=== PATIENT | female | born 1990 | race Caucasian/White ===

== ENCOUNTER → 2022-11-30 13:51 | Outpatient (CLI) | payer OTHER, SELFPAY ==
--- NOTE | ~2022-11-30 | US_ITS ---
EXAMINATION: US transvaginal DATE: 11/30/2022 14:39 INDICATION: Abnormal uterine bleeding Comparison:No prior studies for comparison. TECHNIQUE: Multiple endovaginal sonographic images of the pelvis performed. FINDINGS: The uterus measures 7 x 3.5 x 5.8 cm. The endometrial complex measures 10 mm. The right ovary measures 1.4 x 1.3 x 1.8 cm and the left ovary measures 1.7 x 2 x 1.8 cm. There are small follicles in each ovary. Normal doppler signal in both ovaries. There is no free fluid in the pelvis. There are no abnormal masses seen on either side. IMPRESSION: 1. Unremarkable pelvic ultrasound. Reviewed, dictated and finalized at location B. S AND MARKETING VICE PRESIDENT
== END ==
PROVIDERS: PCP Obstetrics & Gynecology Gynecology; Visit Provider Obstetrics & Gynecology Gynecology
DX: N93.8 Other specified abnormal uterine and vaginal bleeding (principal); N85.2 Hypertrophy of uterus; O34.22 Maternal care for cesarean scar defect (isthmocele)
CPT/HCPCS: 76830

== ENCOUNTER 2024-11-16 03:04 | Day surgery (SDC) | payer OTHER, SELFPAY ==
[2024-11-04 13:11] VITALS: BMI 36.1
--- NOTE | 2024-11-04 13:20 | SUR.PREOP ---
Report to the Outpatient Waiting Room, entrance under the green pavilion located off [facility], at time 8:00 a.m. on date 11/16/2024. Planned Procedure Time: 10:00a.m..? Time changes happen often and if your time is changed the preop area will call you the afternoon before. - You and your visitor will be asked to self-screen and do not enter if you have any COVID symptoms. Please call surgeon if you need to reschedule. - A mask is optional within the hospital at this time. Patients may have clear liquids (water, carbonated beverages, clear teas, apple juice) until 3 hours prior to surgery with a maximum of 20 ounces. - No food from midnight until time of surgery and no smoking. This includes no chewing gum, candy or mints. - Infants may have breast milk until 4 hours before surgery, infant formula 6 hours prior to surgery. - Children will be allowed to drink immediately following surgery.? If applicable, please bring a bottle or sippy cup to assist with drinking. Juice, water, soda, and popsicles are readily available.? For infants on formula, please bring formula the day of surgery.? Pacifiers are allowed. Take only the following medications with a SIP of water on the morning of surgery: N/A DO NOT STOP ANY OF YOUR OTHER PRESCRIPTION MEDICATIONS PRIOR TO SURGERY EXCEPT THE FOLLOWING Medications to discontinue per physician Vitamins and supplements Date to take last dose 11/13/2024 Please no make-up, nail icelandic, hairspray, perfume, deodorant, or body powder the day of surgery.? No jewelry (including any body piercings) or valuables the day of surgery, leave them at home.? Please take a shower or bath the night before, or the morning of, surgery with an antibacterial soap.? Wear comfortable, loose fitting clothing.? Children are encouraged to wear pajamas. - Jewelry must be removed prior to entering the operating room.? Rings and piercings that are not removed may be cut off. - The hospital will not accept responsibility for valuables.? - Please leave all valuables, including medications, at home the day of surgery. If you are going home after surgery, a licensed wood pile driver operator must drive you home.? - NO public transportation without another adult if you receive anesthesia. - We recommend that an adult stay with you for 24 hours following discharge. - We also recommend that you do not drive, make important decision, drink alcoholic beverages, or take any drugs that were not prescribed by your health care provider for at least 24 hours after your discharge time. For Pediatric surgeries, we recommend two adults accompany the child home. Hold all vitamins and supplements for 3 days per anesthesiologist. Follow any additional instructions given to you from your surgeon. Telephone instructions given to Azucena Gomez and asked if any additional questions and then verbalized understanding. Patient advised to call surgeon office or pre surgery nurse liaison [phone] if any additional questions.
--- OUTSIDE RECORDS SUMMARY | 2024-11-16 03:12 | XMS_ITS | Clinical Summary ---
Author Organization [facility] Address [address] [place] [address] Care Team Providers Care Transmission Technician Name Role Phone Pcp, Navi Crump Primary Care Provider Unav ailable Source Comments [facility],non-owned Affiliates and Associated Physician Practices is amultiple site organization consisting of ambulatory clinics and hospital sitesin [place], [place], [place] and [place]. This disclosure is being madepursuant to the Care Everywhere program and may not contain all information available regarding this patient. Last updated 18.[facility] Allergies Active Allergy Reactions Criticality Noted Date Comments Amoxicillin Itching 07/19/2014 Medications * Be aware that medications may not be up to date on this document. Alwaysverify current medications with the patient. Medication Sig Dispensed Refills Start Date End Date Status fluticasone propionate (FLONASE) 50 MCG/ACT nasal spray [place] 2 sprays into each nostril once daily 1 bottles 11/14/2017 Active Loratadine (CLARITIN PO) Active cephalexin (KEFLEX) 500 MG capsule Take 2 capsules by mouth 2 times daily 40 capsule 07/12/2019 Active Active Problems Problem Noted Date Diagnosed Date Thyroid nodule 07/19/2014 Comments Yes Family History Medical History Relation Name Comments Asthma Maternal Grandfather Thyroid Disease Maternal Grandfather Stroke Maternal Grandmother Autoimmune Disease Neg Hx Bipolar Disorder Neg Hx Cancer - Breast Neg Hx Cancer - Colon Neg Hx Cancer - Other Neg Hx Cancer - Ovarian Neg Hx Cancer - Pancreatic Neg Hx Cancer - Prostate Neg Hx Depression Neg Hx Eczema Neg Hx Hypertension Neg Hx Migraine Neg Hx Osteoporosis Neg Hx Seizures Neg Hx Sudd. <30 Neg Hx Ulcerative Colitis Neg Hx Relation Name Status Comments Father Alive Maternal Grandfather Maternal Grandmother Mother Alive Social History Tobacco Use Types Packs/Day Years Used Date Smoking Tobacco: Never Smokeless Tobacco: Never Tobacco Cessation:Counseling Given: No Alcohol Use Standard Drinks/Week Comments Yes 0 (1 standard drink = 0.6 oz pur e alcohol) Comments Yes Sex and Gender Information Value Date Recorded Sex Assigned at Not on file Gender Identity Not on file Sexual Orientation Not on file Last Filed Vital Signs Vital Sign Reading Time Taken Comments Blood Pressure 126/58 04/27/2018 3:49 PM CDT Pulse 98 04/27/2018 3:49 PM CDT Temperature 36.8 C (98.2 F) 04/27/2018 3:49 PM CDT Respiratory Rate 20 04/27/2018 3:49 PM CDT Oxygen Saturation 98% 11/14/2017 3:36 PM ANTISQUEAK WORKER Inhaled Oxygen Concentration - - Weight 86.2 kg (190 lb) 04/27/2018 3:49 PM CDT Height 154.9 cm (5' 1 ) 04/27/2018 3:49 PM CDT Body Mass Index 35.9 04/27/2018 3:49 PM CDT Plan of Treatment Health Maintenance Due Date Last Done Comments HIV SCREENING 2003 HEPATITIS C SCREENING 09/13/2006 DTAP/TDAP/TD VACCINES (1 - Tdap) 2007 HEPATITIS B VACCINE (1 of 3 - 19+ 3-dose series) 2007 PAP SMEAR 07/19/2016 07/19/2013 (Previously completed) COVID-19 VACCINE (2023-2 5 season) 2024 INFLUENZA VACCINE (#1) 2024 DEPRESSION SCREENING 10/07/2024 ZOSTER VACCINE (1 of 2) 2038 Respiratory Syncytial Virus (RSV) Vaccine Pt: or over 60 yrs (1 - 1-dose 75+ series) 2063 HIB VACCINE Aged Out No longer eligi ble based on patient's age to complete this topic HPV VACCINE Aged Out No longer eligi ble based on patient's age to complete this topic MENINGOCOCCAL (Group B) VACCINE Aged Out No longer eligible b ased on patient's age to complete this topic MENINGOCOCCAL VACCINE Aged Out No yousif michael eligible based on patient's age to complete this topic PNEUMOCOCCAL VACCINE Aged Out No long er eligible based on patient's age to complete this topic Care Teams Transmission Technician Relationship Specialty Start Date End Date PcpNavi PCP - General 04/11/23
--- OUTSIDE RECORDS SUMMARY | 2024-11-16 03:12 | XMS_ITS | Encounter Summary ---
Author Organization [facility] Address [address] [place] [id number] Care Team Providers Care Resilient Tile Installer Name Role Phone Jennifer Herzog Primary Care Provider [phone] Encounter Details Date Type Department Care Team (Late st Contact Info) Description 08/15/2023 Viridis Learning Message Enc [facility] Family [facility] Sports Medicine - [address] [place] [address] [facility] Provider Covid Vaccines Social History Tobacco Use Types Packs/Day Years Used Date Smoking Tobacco: Never Passive Smoke Exposure: Never Smokeless Tobacco: Never Alcohol Use Standard Drinks/Week Comments Yes 0 (1 standard drink = 0.6 oz pur e alcohol) socially PHQ-2 Answer Date Recorded Patient Health Questionnaire-2 Score 2 08/14/2023 Comments No Sex and Gender Information Value Date Recorded Sex Assigned at Not on file Legal Sex Female 3:31 PM CDT Gender Identity Not on file Sexual Orientation Not on file documented as of this encounter Plan of Treatment Not on file documented as of this encounter Visit Diagnoses Not on filedocumented in this encounter Additional Health Concerns Assessment Noted Time PHQ-9 Depression Total Score: 6 08/14/20 23 1:53 PM HAND SIZER documented as of this encounter Care Teams Resilient Tile Installer Relationship Specialty Start Date End Date Jennifer Herzog APNP [address] [place] [address] PCP - General NURSE PRACTITIONER 08/13/23 documented as of this encounter
--- OUTSIDE RECORDS SUMMARY | 2024-11-16 03:12 | XMS_ITS | Data Portability ---
Author Organization [employer] , [facility] Address [address] [place] [address] Assessment No assessment recorded. Plan of Treatment Reminders Order Date Submit Date Provider Last Modified By Organization Details Last Modified Time Details Appointments None recorded. Lab beta-HCG, quantitativ e, serum or plasma 2021 [facility], [address] [place] [address], [address], 2 14:48:53 Referral None recorded. Procedures None recorded. Surgeries None recorded. Imaging US, pelvis 2021 [facility] Not available 21:12:49 US, transvagina l 2021 022 [facility] Not available 2 17:39:02 Medication Orders Keflex 500 mg capsule 2021 022 [place] [address] 1 [facility][id number], [address] [place], [place], [id number], 3 16:48:53 estradiol 2 mg tablet 2021 023 [facility] #[id number], [address], [place], [id number], 3 10:47:41 Diflucan 150 mg tablet 2021 022 [place] [address] 1 [facility] #[id number], [address] [place], [place], [id number], 3 16:48:57 Blisovi Fe 10/26 (28) 1 mg-20 mcg (21)/75 mg (7) tablet 2022 023 [id number], [address], [place], [place], [id number], 3 10:52:30 Patient TargetsNo targets recorded. Patient Instructions Encounter Date Encounter Id Patient Instructions Last Modified By Organization Details Last Modified Time 07/31/2022 [id number] after : exercises Not available 08/06/2022 06:39:54 depression after childbirth: care instructions Not available 08/06/2022 06:39:54 Reason for Referral None Reported. Results Created Date Observation Date Name Description Value Unit Range Abnormal Flag Note LastModifiedBy Organization Detail LastModifiedTime 09/05/20 22 09/06/2022 HCG, TOTAL , QUANT HCG, total, quant 0.0 mIU/m L < 5 Refer ence Range s are for femal es aged 18 years - Adult Nonpr egnan t or preme nopau mukesh <5 Postm enopa usal <10 Value s from diffe rent assay metho ds may vary. The use of this assay to monit or or to diagn ose patie nts with cance r or any other condi tion unrel ated to pregn radha has not been valid ated by the [facility] actur er of this assay . Not Available [facility] [address] [place], [address], 09/06/2022 14:48:53 09/08/20 22 09/05/2022 US, pelvi s No observ ation record ed. [email or web address] [address], [place], [address], 10/17/2022 16:52:30 09/27/20 22 09/25/2022 US, trans vagin al No observ ation record ed. [email or web address] [address], [place], [address], 10/17/2022 16:47:09 Result Notes None recorded. Problems Name Problem SNOMED Code Status Onset Date Resolution Date Notes Provider Name and Address Organization Details Recorded Time Sampling of vagina for Papanico laou smear Completed 201904/12/2021 Encounte r for gynecolo gical examinat ion (general ) (routine ) without abnormal findings ; Progress : Stable Added By: Shannan Hernandez Add to Current Problems : NO ProblemS tatus: Resolve Not Available [facility] 2 20:21:11 Transien t hyperten darius of pregnanc y - not delivere d [id number] Completed 201709/23/2018 Hyperten darius in Pregnanc y; Location : None Progress : Stable Added By: Nohemy Vicente Add to Current Problems : YES ProblemS tatus: Resolve Not Available [facility] 2 20:21:18 Vaginola bial hernia Completed 202004/12/2021 Other specifie d noninfla mmatory disorder s of vagina; Progress : Stable Added By: Charito Robertson Add to Current Problems : NO ProblemS tatus: Resolve Not Available [facility] 2 20:20:52 Normal pregnanc y in multigra alek [id number] 4106 Completed 201711/26/2018 Encounte r for supervis ion of other normal pregnanc y, second trimeste r; Progress : Stable Added By: Lexy Puckett Add to Current Problems : NO ProblemS tatus: Resolve; Start Date : 04/18/20 18 Encou nter for supervis ion of other normal pregnanc y, third trimeste r; Progress : Stable Added By: Treva Shoemaker Add to Current Problems : NO ProblemS tatus: Resolve Not Available [facility] 2 20:21:05 Gestatio n period, 30 weeks 04884908 Completed 201711/07/2018 30 weeks gestatio n of pregnanc y; Progress : Stable Added By: Bj Gold Add to Current Problems : NO ProblemS tatus: Resolve Not Available [facility] 2 20:21:11 Lochia finding Completed 201806/10/2020 Encounte r for routine postpart um follow-u p; Progress : Stable Added By: Lexy Puckett Add to Current Problems : NO ProblemS tatus: Resolve Not Available [facility] 2 20:21:32 Gestatio n period, 36 weeks 60697632 Completed 201811/26/2018 36 weeks gestatio n of pregnanc y; Progress : Stable Added By: Treva Shoemaker Add to Current Problems : NO ProblemS tatus: Resolve Not Available [facility] 2 20:21:05 Maternal hyperten darius 097799737 Completed 201811/26/2018 Gestatio nal [pregnan cy-induc ed] hyperten darius without signific ant proteinu shahzad, third trimeste r; Progress : Stable Added By: Jennifer Sanches Add to Current Problems : NO ProblemS tatus: Resolve Not Available [facility] 2 20:21:18 Uses combined oral contrace ption 832578827 Completed 201904/12/2021 Encounte r for surveill ance of contrace ptive pills; Progress : Stable Added By: Charito Swenson Add to Current Problems : NO ProblemS tatus: Resolve Not Available [facility] 2 20:21:33 Gestatio n period, 37 weeks 64714072 Completed 201811/26/2018 37 weeks gestatio n of pregnanc y; Progress : Stable Added By: Treva Shoemaker Add to Current Problems : NO ProblemS tatus: Resolve Not Available [facility] 2 20:21:18 Maternal hyperten darius 235738133 Completed 201709/23/2018 Gestatio nal [pregnan cy-induc ed] hyperten darius without signific ant proteinu shahzad, second trimeste r; Progress : Stable Added By: Nohemy Vicente Add to Current Problems : NO ProblemS tatus: Resolve Not Available [facility] 2 20:21:25 Gestatio n period, 34 weeks 41556605 Completed 201811/07/2018 34 weeks gestatio n of pregnanc y; Progress : Stable Added By: Lexy Puckett Add to Current Problems : NO ProblemS tatus: Resolve Not Available [facility] 2 20:21:38 Gestatio n period, 24 weeks 071677233 Completed 201711/07/2018 24 weeks gestatio n of pregnanc y; Progress : Stable Added By: Lexy Puckett Add to Current Problems : NO ProblemS tatus: Resolve Not Available [facility] 2 20:21:12 Cyst of vulva 77057874 Completed 202012/11/2021 Vulvar cyst; Severity : Moderate Progress : Stable Added By: Ghazal Sahu Add to Current Problems : YES ProblemS tatus: Current Charito Swenson MD [address] [place], [address] , [facility] 2 06:22:21 Gestatio n period, 28 weeks 98865535 Completed 201711/07/2018 28 weeks gestatio n of pregnanc y; Progress : Stable Added By: Bj Gold Add to Current Problems : NO ProblemS tatus: Resolve Not Available [facility] 2 20:21:[address] Concept Completed 201811/26/2018 Supervis ion of other high risk pregnanc ies, marixa trimeste r; Progress : Stable Added By: Jennifer Sanches Add to Current Problems : NO ProblemS tatus: Resolve Not Available [facility] 2 20:20:51 Procedur e on genitour inary system Completed 201801/06/2019 Encounte r for surgical aftercar e followin g surgery on the genitour inary system; Progress : Stable Added By: Treva Shoemaker Add to Current Problems : NO ProblemS tatus: Resolve Not Available [facility] 2 20:21:37 Postoper ative care Completed 201801/06/2019 Encounte r for surgical aftercar e followin g surgery on the genitour inary system; Progress : Stable Added By: Treva Shoemaker Add to Current Problems : NO ProblemS tatus: Resolve Not Available [facility] 2 20:21:38 Gestatio n period, 38 weeks 64442539 Completed 201811/26/2018 38 weeks gestatio n of pregnanc y; Progress : Stable Added By: Treva Shoemaker Add to Current Problems : NO ProblemS tatus: Resolve Not Available [facility] 2 20:21:25 Rubella screenin g status 688525061 Completed 201711/07/2018 Antenata l screenin g; unspecif ied; Location : None Progress : Stable Added By: Lexy Puckett Add to Current Problems : YES ProblemS tatus: Current Encounte r for antenata l screenin g, unspecif ied; Progress : Stable Added By: Lexy Puckett Add to Current Problems : NO ProblemS tatus: Resolve Not Available [facility] 2 20:20:52 Elevated blood-pr essure reading without diagnosi s of hyperten darius 960911223 Completed 201711/07/2018 Elevated blood-pr essure reading, without diagnosi s of hyperten darius; Progress : Stable Added By: Monserrat Joshi Add to Current Problems : NO ProblemS tatus: Resolve Not Available [facility] 2 20:21:12 Gestatio n period, 33 weeks 79079629 Completed 201811/07/2018 33 weeks gestatio n of pregnanc y; Progress : Stable Added By: Jennifer Sanches Add to Current Problems : NO ProblemS tatus: Resolve Not Available [facility] 2 20:21:19 Obesity 322356782 Completed 2021 BMI 34 Ashleigh Villalister null, [place] [facility] 2 16:46:39 Past pregnanc y history of section 561721862 Completed 2021 x 2, Desires repeat with steriliz ation Ashleigh Rainey null[place] [facility] 2 16:46:39 Past pregnanc y history of section 031787579 Active 2021 x 2, Desires repeat with steriliz ation Ashleigh Rainey null, [place] [facility] 2 16:46:39 Obesity 733494305 Active 2021 BMI 34 Ashleigh Rainey null, [facility] 2 16:46:39 Antenata l screenin g Completed 201811/26/2018 Encounte r for antenata l screenin g of mother; Progress : Stable Added By: Treva Shoemaker Add to Current Problems : NO ProblemS tatus: Resolve; Start Date : 07/18/20 18 Encou nter for antenata l screenin g for Streptoc occus B; Progress : Stable Added By: Treva Shoemaker Add to Current Problems : NO ProblemS tatus: Resolve Encounte r for other specifie d antenata l screenin g; Progress : Stable Added By: Treva Shoemaker Add to Current Problems : NO ProblemS tatus: Resolve; Start Date : 07/18/20 18 Not Available [facility] 2 20:21:05 Sampling of vagina for Papanico laou smear Completed 201904/12/2021 Encounte r for cervical smear to confirm findings of recent normal smear followin g initial abnormal smear; Progress : Stable Added By: Rosalia Medrano Add to Current Problems : NO ProblemS tatus: Resolve Not Available [facility] 2 20:21:24 Depressi on screenin g Completed 201806/10/2020 Encounte r for screenin g for maternal depressi on; Progress : Stable Added By: Lexy Puckett Add to Current Problems : NO ProblemS tatus: Resolve Not Available [facility] 2 20:21:32 RhD negative 042857558 Completed Ashleigh Villalister null, [facility] 2 16:46:39 Problem Notes None recorded. Procedures Surgical History Date Name Laterality Status Provider Name and Address Organization Details Recorded Time Suture/Staple removal completed Charito Swenson MD [address] [place] [address], [phone], [employer] [place] 06/25/2022 21:45:02 022 fallopian tube excision completed Charito Swenson MD [address] [place] [address], [phone], [facility] [employer] [facility] 08/06/2022 06:38:46 020 Date of Last [facility] 11/03/2021 15:16:42 cholecystectomy completed [facility] [employer] [facility] 11/03/2021 15:19:47 section completed Charito Swenson MD [address] [place], [address], [facility] [employer] [facility] 08/06/2022 06:38:17 Imaging Results Imaging Date Name Status LastModified by Organization Details LastModified Time 09/05/2022 US, pelvis completed [email or web address], [place], [address], 10/17/2022 16:52:30 09/25/2022 US, transvaginal completed [email or web address] [address], [place], [address], 10/17/2022 16:47:09 Procedure Notes None recorded. Medical Equipment None Reported. Allergies Allergen ID Allergen Name Allergen Category Reaction Reaction Severity Criticality Documentation Date Start Date Code Code System Note Provider Name and Address Organization Details Recorded Time 585913 amoxicill in medicatio n Not available Not available Not available 07/28/20212017 723 RxNorm Sever ity: Moder ate; Not Available Not Available Not Available 935323 cat dander environme nt Not available Not available Not available 11/06/2021 06153 UNK Not Available Not Available Not Available 586652 mold extract environme nt Not available Not available Not available 11/06/2021 45710 8 RxNorm Not Available Not Available Not Available Medications Name Sig Start Date Stop Date Status Note LastModified by Organization Details LastModified Time doxycycli ne hyclate 100 mg capsule TAKE 1 CAPSULE BY MOUTH TWICE DAILY FOR 5 DAYS 09/25 completed Not Available Not Available Not Available aspirin 325 mg tablet 1 tab daily 12/12 completed Aspirin (ASA) 81mg Chewable Tablet RxNorm: 101852 Allow Substitu tion: True Refill Denied: No Refill DateOccu rred: 10/24/19 19 Not Available Not Available Not Available fluconazo le 150 mg tablet TAKE 1 TABLET BY MOUTH EVERY DAY DIRECTED 11/12 completed Not Available Not Available Not Available metronida zole 500 mg tablet TAKE 1 TABLET BY MOUTH TWICE DAILY FOR 7 DAYS. DO NOT DRINK ALCOHOL WHILE TAKING THIS MEDICATI ON 11/06 completed Not Available Not Available Not Available sulfameth oxazole 800 mg-trimet hoprim 160 mg tablet take 1 tablet by oral route bid x 7d 11/06 completed sulfamet hoxazole -trimeth oprim 800-160 mg oral tablet RxNorm: 610817 Allow Substitu tion: True Refill Denied: No Edited by: barbara fairbanks(Ghazal Miguel ) on 04/12/20 21 Stopped by: barbara fairbanks(Ghazal Miguel ) on Not Available Not Available Not Available Zantac 150 mg tablet 1 p.o. bid 10/24 completed Zantac 150mg Tablet RxNorm: 612669 Allow Substitu tion: True Refill Denied: No Not Available Not Available Not Available Vitamin tablet 01/06 completed Multivit foster RxNorm: 0 Allow Substitu tion: True Refill Denied: No Refill Note: No cancel reason selected Refill DateOccu rred: 10/24/19 19 Not Available Not Available Not Available estradiol 1 mg tablet TAKE 1 TABLET BY MOUTH TWICE DAILY FOR 5 DAYS 09/25 completed Not Available Not Available Not Available Zoloft 50 mg tablet 1 p.o. qd 11/10 completed Zoloft 50mg Tablet RxNorm: 929831 Allow Substitu tion: True Refill Denied: No Refill Note: Auto Aged Refill DateOccu rred: 06/13/20 18 Not Available Not Available Not Available phenazopy ridine 100 mg tablet take 1 tablet (100 mg) by oral route 3 times per day after meals 11/06 completed Not Available Not Available Not Available cephalexi n 500 mg capsule TAKE 1 CAPSULE BY MOUTH EVERY 6 HOURS FOR 5 DAYS 11/12 completed Not Available Not Available Not Available buspirone 10 mg tablet 1 po BID 12/12 completed Buspiron e HCl 10mg Tablet RxNorm: 942359 Allow Substitu tion: True Refill Denied: No Not Available Not Available Not Available aspirin 81 mg chewable tablet 1 tab daily 12/12 completed Aspirin (ASA) 81mg Chewable Tablet RxNorm: 689633 Allow Substitu tion: True Refill Denied: No Refill DateOccu rred: 10/24/19 19 Not Available Not Available Not Available estradiol 2 mg tablet Take 1 tablet every day by oral route. 11/15 completed Not Available Not Available Not Available ibuprofen 600 mg tablet 08/20 completed Not Available Not Available Not Available oxycodone 5 mg tablet 07/31 completed Not Available Not Available Not Available Tika 0.35 mg tablet Take 1 tablet(s ) by mouth daily as directed . 11/06 completed Tika 0.35 mg oral tablet RxNorm: 400253 Allow Substitu tion: True Refill Denied: No Edited by: Concetta Laird ) on 05/20/20 20 Stopped by: Concetta Laird ) on Not Available Not Available Not Available nitrofura ntoin monohydra te/macroc rystals 100 mg capsule TAKE 1 CAPSULE BY MOUTH TWICE DAILY FOR 7 DAYS 11/06 completed Not Available Not Available Not Available Zantac 1 p.o. bid 12/12 completed Zantac 150mg Tablet RxNorm: 867488 Allow Substitu tion: True Refill Denied: No Refill DateOccu rred: 10/24/19 19 Not Available Not Available Not Available active Not Available Not Avai lable Not Available Prenate Mini Take 1 capsule( s) by mouth daily 08/01 completed Prenate Mini Softgel capsule Allow Substitu tion: True Refill Denied: No Refill DateOccu rred: 04/18/20 18 Not Available Not Available Not Available Blisovi Fe 10/26 (28) 1 mg-20 mcg (21)/75 mg (7) tablet TAKE 1 TABLET BY MOUTH DAILY DIRECTED active Not Available Not Available No t Available Vitals Date Recorded Body height Body mass index (BMI) Body weight Systolic blood pressure Diastolic blood pressure Provider Name and Address Organization Details Last Updated DateTime 07/31/2022 165.1 cm 34.8 kg/m2 50228.81 g 122 mm[Hg] 70 mm[Hg] Karen Hilario [place] [facility] 2 10:21:45 Date Recorded Body height Body mass index (BMI) Body weight Body temperature Systolic blood pressure Diastolic blood pressure Provider Name and Address Organization Details Last Updated DateTime 2 165.1 cm 34.9 kg/m2 46679.9 6 g 98.2 [degF] 118 mm[Hg] 72 mm[Hg] Ashleigh Rainey [facility] 2 16:51:49 Date Recorded Body height Body mass index (BMI) Body weight Body temperature Systolic blood pressure Diastolic blood pressure Provider Name and Address Organization Details Last Updated DateTime 2 165.1 cm 34.9 kg/m2 66733.4 g 98.1 [degF] 112 mm[Hg] 70 mm[Hg] Talib Taylor [facility] 2 10:41:15 Date Recorded Body height Body mass index (BMI) Body weight Body temperature Systolic blood pressure Diastolic blood pressure Provider Name and Address Organization Details Last Updated DateTime 2 165.1 cm 33.6 kg/m2 72800.6 6 g 97.1 [degF] 119 mm[Hg] 74 mm[Hg] Latanya Anton [facility] 2 13:11:44 Date Recorded Body height Body mass index (BMI) Body weight Systolic blood pressure Diastolic blood pressure Provider Name and Address Organization Details Last Updated DateTime 11/15/2022 154.94 cm 38 kg/m2 94478.07 g 118 mm[Hg] 76 mm[Hg] Loydajordan Hilario [facility] 3 10:29:39 Social History Question Answer Notes LastModified by Organizat ion Details LastModified Time Tobacco Smoking Status Never Smoker Ashleigh lopez [facility] 11/06/2021 10:34:19 What Is Your Level Of Alcohol Consumption? Occasional Information not available 11/06/2021 Are You Blind Or Do You Have Difficulty Seeing? No Information not available 02/12/2022 Are You Deaf Or Do You Have Serious Difficulty Hearing? No Information not available 02/12/2022 What Type Of Diet Are You Following? REGULAR Information not available 11/06/2021 Do You Or Have You Ever Used E-cigarettes Or Vape? Never Used Electronic Cigarettes Information not available 11/06/2021 How Many Children Do You Have? 3 Information not available 11/15/2022 What Is Your Relationship Status? Information not available 11/03/2021 Are You Sexually Active? Yes Information not available 11/03/2021 Do You Use Any Illicit Or Recreational Drugs? No Information not available 11/06/2021 Do You Or Have You Ever Used Any Other Forms Of Tobacco Or Nicotine? No Information not available 02/12/2022 Sex: Unknown Functional Status Question Answer Note LastModified by Organization D etails LastModified Time What is your exercise level? Moderate Information not available 11/06/2021 Mental Status None recorded. Family History Relationship Description Onset Age of this Age Resolved Age Notes LastModified by Organization Details LastModified Time Maternal Grandfather Hypertensive disorder [email or web address] Not available 10/08 15:20:29 Maternal Grandmother Hypertensive disorder [email or web address] Not available 10/08 15:20:29 Mother Hypertensive disorder [email or web address] Not available 10/08 15:20:29 Paternal Grandfather Type 2 diabetes mellitus [email or web address] 2 Not available 11/06/2021 10:28:39 Paternal Grandmother Type 2 diabetes mellitus [email or web address] 2 Not available 11/06/2021 10:28:39 Medical History Condition Response High Blood Pressure N Cytomegalovirus N Hyperthyroidism N MRSA N Blood Transfusion N Depression N Incontinence N Anxiety Disorder N Autoimmune disease N Arthritis N Polycystic Ovarian Syndrome N Hematuria N Varicosities N Stroke N Seasonal allergies N Crohn's Disease N Alzheimer's/Dementia N COPD/Emphysema N History of Abnormal Pap N Fibromyalgia N Kidney Infection N Kidney Disease N Gallbladder disease N Von Willebrand disease N Eating Disorder N Diabetes Mellitus (non-insulin dependent ) N Ovarian Problems N Frequent Urinary Tract infections N Osteopenia N GERD (reflux) N Diabetes (insulin dependent) N Heart Attack N Asthma N Endometrial Cancer N Hepatitis N Pulmonary Embolism N RPR N Chicken Pox N Other Cancer N Colon Cancer N Herpes (HSV) N Breast Cancer N Lung Cancer N Hypothyroidism N Panic Attacks N Neurological Disorder N Deep Vein Thrombosis N Shingles N Tuberculosis/Positive PPD N Cervical Cancer N Chlamydia N Endometriosis N HPV/Genital Warts N IBS (Irritable Bowel Syndrome) N High Cholesterol N Liver Disease N Ulcer N HIV N Sickle Cell Disease/Trait N ADD/ADHD N Anemia N Multiple Sclerosis N Gonorrhea N Headaches/migraines N Ovarian Cancer N Seizures/Epilepsy N Fibroids N Lupus N Rubella N Blood Clotting Disorder N Bipolar Disorder N Diabetes Mellitus (during ) N Ulcerative Colitis N Heart Disease N Osteoporosis N Gynecological History Statement/Question Response Flow Moderate Date of last HPV 06/16/2020 Date of LMP 11/15/2022 Most Recent Bone Density HPV Vaccine N Date of Last Pap Smear 06/16/2020 Most Recent Mammogram Current Control Method Tubal Ligat ion Age at Menarche 10 Obstetrics History GPAL:G 3 P 3 0 0 3 Type Value Multiple Births 0 Full Term 3 Induced 0 Spontaneous 0 Premature 0 Living 3 Ectopics 0 Total 3 Past Encounters Encounter ID Performer Location Encounter Start Date Encounter Closed Date Diagnosis/Indication Diagnosis SNOMED-CT Code Diagnosis ICD10 Code Diagnosis Note [id number] SUAD Estevez [facility] [address] [place] [address] 11/06/2021 10:28:30 11/06/2021 15:26:26 Routine care 982353514 Z34.81 1. IUP FWB reassuring by initial US done in office today. Aneuploidy screening: Anatomy Scan:2. NOB labs ordered on 11/06/21. Last Pap: 06/2020 NILM, HPV neg. GCCT collected and sent.3. H/O C/S X 2 - Primary for maternal fever, FTP, Intoleranc e, 2nd repeat. Planning repeat LTCS with Ayala Swenson MD.4. Obesity - BMI 33.6. HgA1C added to NOB labs. Pt educated on dietary recommenda tions.5. H/O Thyroid Nodule - no meds. Pt reports TFT's not drawn in several years. TFT's added to NOB labs.6. Delivery Plans: Repeat LTCS with BTL with Ayala Swenson MD at [facility].7. PP Contracept ion Plans: BTL with delivery. Follow up in 4 weeks. [id number] Charito Swenson MD [facility] [address] [place] [address] 12/12/2021 10:09:38 12/12/2021 11:40:31 Routine care 360530632 Z34.81 Gestation period, 12 weeks 85871678 Z3A.12 [id number] [facility] [address] [place] [address] 01/09/2022 10:05:35 01/09/2022 13:01:27 Routine care 430281358 Z34.02 Gestation period, 16 weeks 05389979 Z3A.16 screening 2437 22916 Z36.9 [id number] [facility] [address] [place] [address] 02/12/2022 10:25:45 02/12/2022 13:22:58 Routine care 987190215 Z34.82 Gestation period, 20 weeks 83202571 Z3A.20 screening 2437 69591 Z36.3 [id number] [facility] [address] [place] [address] 03/06/2022 11:27:48 03/28/2022 13:53:28 [id number] [facility] [address] [place] [address] 04/02/2022 10:24:30 04/02/2022 12:09:05 Routine care 624916529 Z34.03 Z34.83 O09.513 O09.523 Depression screening 171 341531 Z13.31 Gestation period, 28 weeks [id number] Z3A.28 [id number] [facility] [address] [place] [address] 04/13/2022 15:45:25 04/13/2022 16:59:19 Routine care [id number] Z34.83 Gestation period, 29 weeks [id number] Z3A.29 [id number] Charito Swenson MD [facility] [address] [place] [address] 05/01/2022 10:52:08 05/02/2022 11:13:42 Routine care [id number] Z34.83 Gestation period, 32 weeks [id number] Z3A.32 [id number] Charito Swenson MD [facility] [address] [place] [address] 05/22/2022 10:04:29 06/05/2022 14:41:16 Routine care [id number] Z34.83 Low back p ain in [id number] 106 O26.899 Gestation period, 35 weeks [id number] Z3A.35 [id number] Charito Swenson MD [place] [address] [place] [address] 06/05/2022 09:58:44 06/05/2022 11:37:06 Routine care [id number] Z34.83 Gestation period, 37 weeks [id number] Z3A.37 screening 2437 35820 Z36.85 [id number] Charito Swenson MD [facility] [address] [place] [address] 06/12/2022 10:09:49 06/12/2022 10:50:23 Routine care [id number] Z34.83 Gestation period, 38 weeks [id number] Z3A.38 [id number] Chariot Swenson MD [facility] [address] [facility] [place] [address] 06/26/2022 10:11:00 06/26/2022 11:50:10 Postoperative visit [id number] Z09 Reviewed Surgical findings. Patient instructed to maintain strict pelvic rest and no heavy lifting greater than 20 lbs. She was instructed to return for a visit in 4 weeks. All of her questions were answered. [id number] Charito Swenson MD [facility] [address] 07/31/2022 09:52:34 07/31/2022 10:44:58 state 86473607 Z39.2 PNV daily Maternal p ostpartum depression screening [id number] 42025 Z13.32 [id number] Manjula Hicks, CN[address] [address] 08/20/2022 16:02:44 08/21/2022 11:06:32 Abnormal uterine bleeding [id number] 9100 N93.9 Precaution s reviewed. PA for tvus. [id number] HUPMHREY WING DO [address] [address] 09/05/2022 10:03:54 09/05/2022 12:25:48 Disorder of menstruation 731325716 N92.6 31 yo 11 weeks from RTLCS w/ BTL on 06/18/22 with ongoing bleeding. US today: thin endometria l lining with debris surroundin g scar.-Plan for hcg levels, if positive will likely move forward with hysterosco py D&C. If negative, will monitor symptoms as they have improved. May repeat US in 2 weeks if still spotting. Hakeem wang thirty minutes spent with patient in consultati on (>50% face-to-fa ce). Patient labs and notes were reviewed. Patient questions were answered. Additional patient care was coordinate d. [id number] Stanislaw Toney MD [address] [address] 09/25/2022 12:35:12 09/26/2022 09:28:39 Disorder of menstruation 561157302 N92.6 discussed atrophic bleeding and we can have her try estradiol 1 -2 mg bid x 5 days prn for bleeding more than 5 days and she may take 1 po qd last 7 days of her control pills as well and spencer third option is to take 1mg daily while on the control pill and we could even try placing her on estrostep Mastitis a ssociated with [id number] O91.22 keflex qid x 5 days Candidiasis 23613100 B37 .9 [id number] SUAD Chacon [facility] [address] [place] [address] 11/15/2022 10:16:57 11/15/2022 10:55:47 Abnormal uterine bleeding [id number] 9100 N93.9 Patient has done well on OCP in the past. Will switch to OCP and discontinu e rx. If ineffectiv e will call office Initial pr escription of oral contraception [id number] Z30.011 Pt educated on risks Vs benefits of use, and reviewed ACHES symptoms. Importance of daily administra tion within the same 30 minute time frame reinforced to pt, and on use of condoms or abstinence if dosing schedule is interrupte d. Refills sent. Plan to F/U PRN or at next [facility]. Health Concerns Section Related Observation LastModified by Organization Detai ls LastModified Time None Recorded Concern Status LastModified by Organization Details LastModified Time None Recorded Advance Directives Directive None Recorded Payers Encounter Date Sequence Insurance Name Policy Number Policy Concepcion Covered Member ID Concepcion Member ID Guarantor Name 07/31/2022 1 [facility] [employer] [id number] Azucena E Jason [id number] Azucena E Jason 08/20/2022 1 [facility] [employer] [id number] Azucena E Jason [id number] Azucena E Jason 09/05/2022 1 [facility] [id number] Azucena E Jason [id number] Azucena E Jason 09/25/2022 1 [facility] [employer] [id number] Azucena E Jason [id number] Azucena E Jason 11/15/2022 1 [employer] - CHOICE (POS II) [id number] Azucena E Jason [id number] Azucena E Jason Notes Date Note Type Note Provider Name and Address Organization Details Recorded Time 07/31/2022 text/html VisitReported bypatient.Onset/Timing :date of delivery: (06/18/2022); [facility] Quality:repeat C/S; infant female weight 8#8oz Context:complications of : none; complications of labor: ; complications: none; feeding choice: breast; good support from partner/family; resumed menstrual bleeding yes Associated Symptoms:no abnormal bleeding; no vaginal discharge; no pelvic pain; laceration well healed; no constipation; no fecal incontinence; no dysuria; no urinary incontinence; no fever; no problems; no mastitis; normal mood; pumping Contraception Plan:permanent sterilization Azucena here for 6 week post visit Charito Swenson MD [facility] [place], [address], [facility] [employer] [facility] 08/06/2022 06:39:58 08/20/2022 text/html Abnormal BleedingReported bypatient.Quality:spot ting Associated Symptoms:no dysmenorrhea; no pelvic pain; no abdominal pain; no dyspareunia; no fatigue; no dizziness; no anemia/iron supplements; no shortness of breath; no CP/palpitations; no bloating; no change in bowel function; no urinary symptoms; no PMS; no vaginal discharge; no vaginal itching/irritationNote s:Patient is now 9 weeks . States she spotted until 5 weeks, it stopped for a week, then started again at 6 weeks. She had no bleeding during week 7 and started spotting around week 8. ;It stopped yesterday. Denies pain, odor, or heaviness of flow. Pt had repeat and tubes removed on 06-18-2022. States she is still having bleeding. Manjula Hicks CNM [facility] [place], [address], [facility] [employer] [facility] 08/26/2022 15:01:53 09/05/2022 text/html Abnormal BleedingReported bypatient.Onset/Timing :Patient not for sure if she has had period or not Duration:7-10 days/month Quality:spotting Severity:changing pad/tampon every 1-2 hours Associated Symptoms:pelvic pain;fatigue;anemia/ir on supplements Pt is here for follow up from continued bleeding following on 06/18/22. Since her visit on 08/20 her bleeding has been: one day of moderate flow on 08/24 and then spottingUS today: thin endometrial lining with debris surrounding scar. HUMPHREY WING DO [address] [facility], [place], [address], [facility] 09/05/2022 11:39:12 09/25/2022 text/html Abnormal BleedingReported bypatient.Quality:pass ing clots;heavy Severity:interferes with daily activitiesNotes:had baby on 06-18-22 and then pp bleeding stopped 22 july and spotted jul 28 and became heavier and stopped and started 08-12 and spotted off and on and heavier 09-07-22 and estradiol and antbxs on and stopped bleeding for 10 days (stopped the estrogen after a week) Pt states she has been bleeding since she delivered baby, but it's been excessive with clots. Pt also states that she has a dry itchy patch on her right nipple. Pt is breast feeding. Pt doesn't have any other questions or concerns. Stanislaw Toney MD [facility] [facility], [place], [address], [facility] 10/27/2022 15:30:29 11/15/2022 text/html Azucena is here t alexandra for irregular bleeding off and on since her 06/18/2022.At times it's been excessive with clots. She was see by Dr. Toney on 09/2022 and was rx'd Estradiol 1mg. This was not effective for helping her bleeding. She was increased to 2mg on 11/09/22. This helped her sx, but have not resolved them. She continues to have heavy, irregular cycles. She had a pelvic u/s on 09/25/22. This was found to be normal. Her hx is notable for a BTL. Her last pap was 06/16/20 Neg/HPV. She has been on an OCP in the past and this worked well for herShe is currently lactating. Her milk supply has decreased slightly since starting on Estradiol SUAD Chacon [address] [facility], [place], [address], [facility] 11/15/2022 13:41:21 OBGyn Episode Ob Episode Information Episode Created Date Number of Fetuses Patient Bloodtype Patient rh Status Prepregnancy Weight lbs Domestic Partner Domestic Partner Phone Father Name Ecg Technician Status 07/30/20 22 1 CLOSED Fetus Data First Name Last Name Admitted to NICU Weight (g) Sex Living Outcome Pediatric Complications Fetus ID Race Codes Race Delivery Type 3883.65 4704 F Full Term [id number] Repeat Rakan Calculation Initial Rakan Date Initial Exam Date Initial Exam Provider Initial Ultrasound Date Last Menstrual Period Date Ultra Sound Weeks Gestation 0 Eighteen To Twenty Week Rakan Update Ultra Sound Date Fundal Height At Umbil Quickening Date Ultra Sound Latest Weeks Gestation Final Rakan Confirmed By Final Rakan Confirmed Date Final Rakan Date Ultra Sound Latest Days Gestation 0 0 Menstrual History Last Menstrual Date Menses Monthly On Bcp Conception Prior Menses Frequency Hcg Plus Date Menarche Onset Age Delivery Information Delivery Date Delivery Type Labor Anesthesia Weeks Gestation Incision Type Labor Labor Length Hrs Delivered By Post Complications Tubal Sterilization Discharge Date Comments 2 Regional- ina Discharge Information Feeding Method Contraceptive Method Maternal HG B and HCT Levels Ob Episode Information Episode Created Date Number of Fetuses Patient Bloodtype Patient rh Status Prepregnancy Weight lbs Domestic Partner Domestic Partner Phone Father Name Ecg Technician Status 11/05/19 22 1 CLOSED Fetus Data First Name Last Name Admitted to NICU Weight (g) Sex Living Outcome Pediatric Complications Fetus ID Race Codes Race Delivery Type 3430.06 2704 F Full Term [id number] Repeat Rakan Calculation Initial Rakan Date Initial Exam Date Initial Exam Provider Initial Ultrasound Date Last Menstrual Period Date Ultra Sound Weeks Gestation 0 Eighteen To Twenty Week Rakan Update Ultra Sound Date Fundal Height At Umbil Quickening Date Ultra Sound Latest Weeks Gestation Final Rakan Confirmed By Final Rakan Confirmed Date Final Rakan Date Ultra Sound Latest Days Gestation 0 0 Menstrual History Last Menstrual Date Menses Monthly On Bcp Conception Prior Menses Frequency Hcg Plus Date Menarche Onset Age Delivery Information Delivery Date Delivery Type Labor Anesthesia Weeks Gestation Incision Type Labor Labor Length Hrs Delivered By Post Complications Tubal Sterilization Discharge Date Comments 9 Discharge Information Feeding Method Contraceptive Method Maternal HG B and HCT Levels Ob Episode Information Episode Created Date Number of Fetuses Patient Bloodtype Patient rh Status Prepregnancy Weight lbs Domestic Partner Domestic Partner Phone Father Name Ecg Technician Status 11/06/19 22 1 CLOSED Fetus Data First Name Last Name Admitted to NICU Weight (g) Sex Living Outcome Pediatric Complications Fetus ID Race Codes Race Delivery Type 3742.13 4 M Full Term [id number] Primary Rakan Calculation Initial Rakan Date Initial Exam Date Initial Exam Provider Initial Ultrasound Date Last Menstrual Period Date Ultra Sound Weeks Gestation 0 Eighteen To Twenty Week Rakan Update Ultra Sound Date Fundal Height At Umbil Quickening Date Ultra Sound Latest Weeks Gestation Final Rakan Confirmed By Final Rakan Confirmed Date Final Rakan Date Ultra Sound Latest Days Gestation 0 0 Menstrual History Last Menstrual Date Menses Monthly On Bcp Conception Prior Menses Frequency Hcg Plus Date Menarche Onset Age Delivery Information Delivery Date Delivery Type Labor Anesthesia Weeks Gestation Incision Type Labor Labor Length Hrs Delivered By Post Complications Tubal Sterilization Discharge Date Comments 3 Maternal Fever, FTP, Distress Discharge Information Feeding Method Contraceptive Method Maternal HG B and HCT Levels Ob Episode Information Episode Created Date Number of Fetuses Patient Bloodtype Patient rh Status Prepregnancy Weight lbs Domestic Partner Domestic Partner Phone Father Name Ecg Technician Status 11/06/19 22 1 A Negative CLOSED Fetus Data First Name Last Name Admitted to NICU Weight (g) Sex Living Outcome Pediatric Complications Fetus ID Race Codes Race Delivery Type [id number] Problems Problem Notes anatomy = no abn and post pl ac Problem Name Start Date End Date Resolution Snomed Code Not e Obesity 01/09/2022 [id number] BMI 34 Past history of section 01/09/2022 [id number] x 2, Desires re peat with sterilization RhD negative [id number] Rakan Calculation Initial Rakan Date Initial Exam Date Initial Exam Provider Initial Ultrasound Date Last Menstrual Period Date Ultra Sound Weeks Gestation 06/25/2022 11/06/2021 11/06/2021 09/11/2021 7 Eighteen To Twenty Week Rakan Update Ultra Sound Date Fundal Height At Umbil Quickening Date Ultra Sound Latest Weeks Gestation Final Rakan Confirmed By Final Rakan Confirmed Date Final Rakan Date Ultra Sound Latest Days Gestation 0 awittler 11/06/2021 06/25/20 22 0 Pre- Flowsheet Flowsheet Date 11/06/2021 Ponce Score Blood Edema Fundus Height Fundus Units Glucose Ketones Leukocytes Nitrite Labor Signs Protein Cervic Dilation Cervic Effacement Cervic Station none none Type Weight in lbs Pre/Post Dialysis Refused Weight 201.085927451570 BP Diastolic BP Location Tested BP Systolic BP Type 70 116 Fetus Heart Rate Present A 136 Present Fetus Movement A No Comments 1. IUP FWB reassuring by roberto matos US done in office today. Aneuploidy screening: Anatomy Scan: 2. NOB labs ordered on 11/06/21. Last Pap: 06/2020 NILM, HPV neg. GCCT collected and sent. 3. H/O C/S X 2 - Primary for maternal fever, FTP, Intolerance, 2nd repeat. Planning repeat LTCS with Ayala Swenson MD. 4. Obesity - BMI 33.6. HgA1C added to NOB labs. Pt educated on dietary recommendations. 5. H/O Thyroid Nodule - no meds. Pt reports TFT's not drawn in several years. TFT's added to NOB labs. 6. Delivery Plans: Repeat LTCS with BTL with Ayala Swenson MD at [facility].7. PP Contraception Plans: BTL with delivery. Flowsheet Date 12/12/2021 Ponce Score Blood Edema Fundus Height Fundus Units Glucose Ketones Leukocytes Nitrite Labor Signs Protein Cervic Dilation Cervic Effacement Cervic Station none none neg Type Weight in lbs Pre/Post Dialysis Refused With clothes 199.811610910909 BP Diastolic BP Location Tested BP Systolic BP Type 70 R arm 120 sitting Fetus Heart Rate Present A 160 Fetus Movement A No Comments Doing well. Discussed nipt v s penta. Plan PENTA. Discussed Salpingectomy vs BTL. Flowsheet Date 01/09/2022 Ponce Score Blood Edema Fundus Height Fundus Units Glucose Ketones Leukocytes Nitrite Labor Signs Protein Cervic Dilation Cervic Effacement Cervic Station none none none neg Type Weight in lbs Pre/Post Dialysis Refused With clothes 199.749779823361 BP Diastolic BP Location Tested BP Systolic BP Type 70 R arm 128 sitting Fetus Heart Rate Present A 145 Fetus Movement A No Comments No complaints. PENTA today. Flowsheet Date 02/12/2022 Ponce Score Blood Edema Fundus Height Fundus Units Glucose Ketones Leukocytes Nitrite Labor Signs Protein Cervic Dilation Cervic Effacement Cervic Station none none none neg Type Weight in lbs Pre/Post Dialysis Refused With clothes 204.871673651641 BP Diastolic BP Location Tested BP Systolic BP Type 72 L arm 112 sitting Fetus Heart Rate Present A 142 Fetus Movement A Yes Comments Anatomical survey incomplete , Follow up next visit. 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 plan to complete this week. Tubal consent signed today. desires swenson for delivery.28 week labs completed todayFWB reassuring, active fm. Flowsheet Date 04/13/2022 Ponce Score Blood Edema Fundus Height Fundus Units Glucose Ketones Leukocytes Nitrite Labor Signs Protein Cervic Dilation Cervic Effacement Cervic Station none 29 none Type Weight in lbs Pre/Post Dialysis Refused Weight 217.016956243589 BP Diastolic BP Location Tested BP Systolic BP Type 60 L arm 122 sitting Fetus Heart Rate Present A 144 Fetus Movement A Yes Comments No complaints. Flowsheet Date 05/01/2022 Ponce Score Blood Edema Fundus Height Fundus Units Glucose Ketones Leukocytes Nitrite Labor Signs Protein Cervic Dilation Cervic Effacement Cervic Station none 32 none Type Weight in lbs Pre/Post Dialysis Refused With clothes 0.0 BP Diastolic BP Location Tested BP Systolic BP Type R arm sitting Fetus Heart Rate Present A 160 Fetus Movement A Yes Comments Planning repeat c/s @ 39 wee ks Flowsheet Date 05/22/2022 Ponce Score Blood Edema Fundus Height Fundus Units Glucose Ketones Leukocytes Nitrite Labor Signs Protein Cervic Dilation Cervic Effacement Cervic Station 35 none none neg Type Weight in lbs Pre/Post Dialysis Refused With clothes 221.831108732269 BP Diastolic BP Location Tested BP Systolic BP Type 72 R arm 122 sitting Fetus Heart Rate Present A 135 Fetus Movement A Yes Comments Pelvic Pressure. Measured fo r Maternity hollis. Flowsheet Date 06/05/2022 Ponce Score Blood Edema Fundus Height Fundus Units Glucose Ketones Leukocytes Nitrite Labor Signs Protein Cervic Dilation Cervic Effacement Cervic Station trace 38 none none neg Type Weight in lbs Pre/Post Dialysis Refused With clothes 222.101934055065 BP Diastolic BP Location Tested BP Systolic BP Type 80 L arm 122 sitting Fetus Heart Rate Present A 145 Fetus Movement A Yes Comments No new complaints. Still brianna ting on Maternity belt. Flowsheet Date 06/12/2022 Ponce Score Blood Edema Fundus Height Fundus Units Glucose Ketones Leukocytes Nitrite Labor Signs Protein Cervic Dilation Cervic Effacement Cervic Station trace 40 none none trace 0cm 50% -2 Type Weight in lbs Pre/Post Dialysis Refused With clothes 223.573767456791 BP Diastolic BP Location Tested BP Systolic BP Type 78 R arm 126 sitting Fetus Heart Rate Present A 140 Fetus Movement A Yes Comments Intermittent contractions. L abor precautions. Plan repeat c/s with salpingectomy. Flowsheet Date 06/26/2022 Ponce Score Blood Edema Fundus Height Fundus Units Glucose Ketones Leukocytes Nitrite Labor Signs Protein Cervic Dilation Cervic Effacement Cervic Station Type Weight in lbs Pre/Post Dialysis Refused With clothes 210.676893983859 BP Diastolic BP Location Tested BP Systolic BP Type 76 L arm 118 sitting Fetus Heart Rate Present Fetus Movement Comments Flowsheet Date 07/31/2022 Ponce Score Blood Edema Fundus Height Fundus Units Glucose Ketones Leukocytes Nitrite Labor Signs Protein Cervic Dilation Cervic Effacement Cervic Station Type Weight in lbs Pre/Post Dialysis Refused With clothes 209.601612741671 BP Diastolic BP Location Tested BP Systolic BP Type 70 R arm 122 sitting Fetus Heart Rate Present Fetus Movement Comments Flowsheet Date 08/20/2022 Ponce Score Blood Edema Fundus Height Fundus Units Glucose Ketones Leukocytes Nitrite Labor Signs Protein Cervic Dilation Cervic Effacement Cervic Station Type Weight in lbs Pre/Post Dialysis Refused Weight 209.085032891425 BP Diastolic BP Location Tested BP Systolic BP Type 72 118 Fetus Heart Rate Present Fetus Movement Comments Menstrual History Last Menstrual Date Menses Monthly On Bcp Conception Prior Menses Frequency Hcg Plus Date Menarche Onset Age 1209/11/2021 false 12 Genetic Screening And Infection History Question Response Note Recent Travel History Outside of Country false Cystic Fibrosis false Any Other Genetic History false Jessica Disease false Other Infection History false Thalassemia (Upper Sorbian, Ukrainian, Mediterranean, Or Background): MCV < 80 false Patient Or Baby's Father Had A Child With Defects Not Listed Above false Live With Someone With TB Or Exposed To TB false Patient's Age Will Be 35 Years Or Older At Estim ated Date of Delivery false Recurrent Loss, Or A Stillbirth false Hemoglobinopathy Or Carrier false Patient Or Partner Has History Of Genital Herpes false Intellectual Disability/Autism false Maternal Metabolic Disorder (eg, Type 1 Diabetes , PKU) false History of Hepatitis false Jose Manuel-Sachs (eg, Taoism, Cajun, German-[place]) f alse History Of STD, Gonorrhea, Chlamydia, HPV, Syphi lis false Prior GBS-infected child false History of HIV false Personal or Family History o f Neural Tube Defect (Meningomyelocele, Spina Bifida, Or Anencephaly) false Hemophilia Or Other Blood Disorders false Mental Retardation/Autism false Barry's Chorea false If Yes, Was Person Tested For Fragile X? false Other Inherited Genetic Or Chromosomal Disorder false If Yes, Agent(s) And Strength/Dosage false Sickle Cell Disease Or Trait () false Personal or Family History of Congenital Heart D efect false Rash Or Viral Illness Since Last Menstrual Perio d false Muscular Dystrophy false Medications (including Suppl ements, Vitamins, Herbs, OTC Drugs), Illicit/Recreational Drugs, Alcohol false Other Structural Defect false Down Syndrome false Delivery Information Delivery Date Delivery Type Labor Anesthesia Weeks Gestation Incision Type Labor Labor Length Hrs Delivered By Post Complications Tubal Sterilization Discharge Date Comments 2 39 Discharge Information Feeding Method Contraceptive Method Maternal HG B and HCT Levels
--- OUTSIDE RECORDS SUMMARY | 2024-11-16 03:12 | XMS_ITS | Referral Summary ---
Author Organization [facility] Address [address] [place] [address] Care Team Providers Care Contract Engineer Name Role Phone No, Physician Primary Care Provider Encounters Date Type Department Care Team Description 08/27/2024 Telephone [facility] Endocrinology Metabolism and Lipid [address] [facility] [address] [place] [address] [place] [address] Cira Ambrose RN from Last 3 Months Allergies Active Allergy Reactions Criticality Noted Date Comments Amoxicillin Itching,Rash Medium 09/25/2012 Cat Dander Other (See comments) Low 06/14/2022 Mold Other (See comments) Low 06/14/2022 Medications metFORMIN XR (GLUCOPHAGE XR) 500 mg 24 hr tablet Take 1 tablet (500 mg total) by mouth 3 (three) times a day 05/28/2024 Active Active Problems Problem Noted Date Diagnosed Date Vitamin D deficiency 06/22/2024 Overview (06/22/2024): Noted to have a vitamin D level of 17 in 08/2023 Patient briefly on daily vitamin D supplementation which she has since discontinued Patient instructed to follow up with her PMD to get level rechecked PCOS (polycystic ovarian syndrome) 06/22/2024 Overview (06/22/2024): Patient on metformin Followed by OB Multiple thyroid nodules 06/17/2024 Overview (06/22/2024): Clinically and biochemically euthyroid. TSH checked within the last year and normal - no need to repeat R nodule meets criteria for FNA as seen on 02/2024 US and bedside US today. Discussed risks and benefits. Patient is interested in proceeding. We will also biopsy the L nodule. 39 weeks gestation of 06/18/2022 Status post section 06/18/2022 Immunizations Name Administration Dates Next Due Tdap 04/12/2022 Social History Tobacco Use Types Packs/Day Years Used Date Smoking Tobacco: Never Smokeless Tobacco: Never Tobacco Cessation:Counseling Given: Not Answered AUDIT-C Answer Date Recorded Q1: How often do you have a drink containing alcohol? Never 06/18/2022 Q2: How many drinks containi ng alcohol do you have on a typical day when you are drinking? Patient does not drink Q3: How often do you have si x or more drinks on one occasion? Never 06/18/2022 [place] Depression Scale Answer Date Recorded [place] Depression Scale Total 2 06/19/2022 The thought of harming myself has occurred to me . 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 Gender Identity Not on file Sexual Orientation Not on file Last Filed Vital Signs Vital Sign Reading Time Taken Comments Blood Pressure 119/82 07/21/2024 9:09 AM CDT Pulse 98 07/21/2024 9:09 AM CDT Temperature 36.4 C (97.6 F) 07/21/2024 9:09 AM CDT Respiratory Rate 17 07/21/2024 9:09 AM CDT Oxygen Saturation 98% 06/20/2022 5:55 AM CDT Inhaled Oxygen Concentration - - Weight 86.6 kg (191 lb) 07/21/2024 9:09 AM CDT Height 154.9 cm (5' 1 ) 07/21/2024 9:09 AM CDT Body Mass Index 36.09 07/21/2024 9:09 AM CDT Plan of Treatment Not on file Insurance AETNA COVENTRY HMO/POS AETBETO COV[employer]ger [employer] Life [employer] HMO/POS Member Subscriber Plan / Payer (Ef fective 2022-Present) Name:Azucena Gomez Relation to Subscriber:Self Name:Azucena Gomez Payer ID:[id number] ([facility]) Type:AETNA HMO/PPO Address: [place] [id number] Advance Directives For more information, please contact: [phone] * Full Code (Latest Code Status on File) Date Activated Date Inactivated Comments 06/18/2022 12:39 PM 06/20/2022 5:32 PM * Full Code Date Activated Date Inactivated Comments 06/18/2022 5:45 AM 06/18/2022 12:39 PM Full CPR in case of cardiopulmonary arrest Care Teams Contract Engineer Relationship Specialty Start Date End Date No, Physician PCP - General 02/05/24
--- OUTSIDE RECORDS SUMMARY | 2024-11-16 03:12 | XMS_ITS | Clinical Summary ---
Author Organization [facility] Address [address] [place] [address] Care Team Providers Care Pattern Finisher Name Role Phone No, Physician Primary Care Provider [phone] Allergies Active Allergy Reactions Criticality Noted Date [...] gestation of 06/18/2022 Status post section 06/18/2022 Encounters Date Type Department Care Team Description 08/27/2024 Telephone [facility] Endocrinology Metabolism and Lipid [address] 5[address] [place] [address] [place] [address] Cira Ambrose RN from Last 3 Months Immunizations Name Administration Dates Next Due Tdap 04/12/2022 Surgical History Surgery Date Site/Laterality Comments CHOLECYSTECTOMY SECTION Medical History Medical History Date Comments Obesity (BMI 30.0-34.9) Thyroid nodule no meds Multiple thyroid nodules 06/17/2024 Family History Medical History Relation Name Comments Anxiety disorder Father OCD Father Diabetes Maternal Grandfather Stroke Maternal Grandfather Asthma Maternal Grandmother COPD Maternal Grandmother Depression Mother Hyperlipidemia Mother Hypertension Mother COPD Paternal Grandmother Stroke Paternal Grandmother Relation Name Status Comments Father Alive Maternal Grandfather Maternal Grandmother Mother Alive Paternal Grandfather Paternal Grandmother Social History Tobacco Use Types Packs/Day Years [...] more drinks on one occasion? Never 06/18/2022 [place] Depression Scale Answer Date Recorded [place] Depression Scale Total 2 06/19/2022 The thought of harming myself has occurred to me . 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 Gender Identity Not on file Sexual Orientation Not on file Obstetrics History Para Term AB IAB SAB Ectopic Multiple Livin g Live Births 3 3 3 0 3 3 Date Outcome GA Total Labor Labor/2nd/3rd Weight Sex Type Anes PTL Renae A1 A5 Name Clin 2012 Term 39w 6d 3.742 kg (8 lb 4 oz) M CS-LT ranv Epidur al Livin g 8 9 [place], BOY1A VANDA Complications: Intolera nce Delivery Location:[facility] Comments:No observed a nomalies 2018 Term 3.43 kg (7 lb 9 oz) F CS-LT ranv Livin g 2021 Term 39w 0d 3.87 kg (8 lb 8.5 oz) F CS-LT ranv Spinal N Livin g 8 8 HEAVENLY GOMEZ Emily B., MD Complications:None Delivery Location:[facility] Main C ampus (MHE L AND D PROCEDURE) Last Filed Vital Signs Vital Sign Reading [...] 07/21/2024 9:09 AM CDT Plan of Treatment Health Maintenance Due Date Last Done Comments Cervical Cancer Screening 1988 Hepatitis C Screening 1988 Varicella Vaccines (1 of 2 - 13+ 2-dose series) 2001 Hepatitis B Screening 2006 Regular Well Visit/Exam 18-64 2006 Depression Screening 06/19/2023 06/19/2022 Covid-19 Vaccine ( season) 2024 09/21/2021, 12/24/2020, 12/03/2020 Influenza Vaccine (#1) 2024 3, 09/21/2021, 08/05/2020, Additional history exists DTaP/Tdap/Td Vaccine (4 - Td or Tdap) 04/12/2032 04/12/2022, 09/12/2018, 01/05/2013 HPV Vaccines Aged Out No longer eligi ble based on patient's age to complete this topic Pneumococcal vaccine <65 Aged Out No longer eligible based on patient's age to complete this topic Insurance AETNA COVENTRY HMO/POS Member Subscriber Plan / Payer (Ef fective 2022-Present) Name:Azucena Gomez Relation to Subscriber:Self Name:Azucena Gomez Payer ID:[id number] ([facility]) Type:AETNA HMO/PPO Address: [place] [id number] AETNA COVENTRY HMO/POS Member Subscriber Plan / Payer (Ef fective 2022-Present) Name:Azucena Gomez Relation to Subscriber:Self Name:Azucena Gomez Payer ID:[id number] ([facility]) Type:AETNA HMO/PPO Address: [place] [id number] Advance Directives For more information, please contact: [phone] * Full Code (Latest Code Status on File) Date Activated Date Inactivated Comments 06/18/2022 12:39 PM 06/20/2022 5:32 PM * Full Code Date Activated Date Inactivated Comments 06/18/2022 5:45 AM 06/18/2022 12:39 PM Full CPR in case of cardiopulmonary arrest Care Teams Pattern Finisher Relationship Specialty Start Date End Date No, Physician PCP - General 02/05/24
--- OUTSIDE RECORDS SUMMARY | 2024-11-16 03:12 | XMS_ITS | Encounter Summary ---
Author Organization [facility] Address [address] [place] [address] Care Team Providers Care Clip Baker Name Role Phone Lei Delgado DO Primary Care Provider Herminia remy PcpNavi Primary Care Provider Palak ailable Encounter Details Date Type Department Care Team (Late st Contact Info) Description 07/19/2014 [facility] Lei Delgado DO Social History Tobacco Use Types Packs/Day Years Used Date Smoking Tobacco: Never Alcohol Use Standard Drinks/Week Comments Not Asked 0 (1 standard drink = 0.6 oz pur e alcohol) Sex and Gender Information Value Date Recorded Sex Assigned at Not on file Gender Identity Not on file Sexual Orientation Not on file documented as of this encounter Plan of Treatment Not on file documented as of this encounter Visit Diagnoses Not on filedocumented in this encounter Care Teams Clip Baker Relationship Specialty Start Date End Date Lei Delgado DO PCP - General Family Medicine 02/09/14 04/10/23 PcpNavi PCP - General 04/11/23 documented as of this encounter
--- OUTSIDE RECORDS SUMMARY | 2024-11-16 03:12 | XMS_ITS | Clinical Summary ---
Author Organization [facility] Address [facility] [place] [address] Care Team Providers Care Career Development Engineer Name Role Phone Jennifer Herzog Primary Care Provider [phone] Allergies Active Allergy Reactions Criticality Noted Date Comments Amoxicillin Itching,Rash Medium 09/25/2012 Cat Dander Other (see comment) Low 06/14/2022 Molds & Smuts Other (see comment) Low 06/14/2022 Medications cefdinir (OMNICEF) 300 MG Cap capsuleIndicatio ns:Strep pharyngitis Take 2 capsules (600 mg total) by mouth daily. 20 capsule 3 Active Active Problems Problem Noted Date Diagnosed Date Thyroid nodule 09/25/2012 Overview (08/14/2023): Seeing Plate Stacker in [place]. Immunizations Name Administration Dates Next Due Fluzone 6 Months+ Quad (0.5 mL Prefilled Syringe) 08/14/2023 Influenza Adult (Generic) 09/21/2021,08/05/2020 PFIZER COVID-19 (ORIGINAL FO RMULATION, PURPLE CAP) mRNA, LNP-S, PF, 30 MCG/0.3 ML DOSE 09/21/2021,12/24/2020,12/03/2020 Tdap (Generic) 04/12/2022,01/05/2013 Family History Medical History Relation Comments Anxiety Father OCD Father Miscarriages / Stillbirths Maternal Aunt Depression Maternal Grandfather Hypertension Maternal Grandfather Asthma Maternal Grandmother Depression Maternal Grandmother Emphysema Maternal Grandmother Hypertension Maternal Grandmother Miscarriages / Stillbirths Maternal Grandmother Depression Mother Hyperlipidemia Mother Hypertension Mother Miscarriages / Stillbirths Paternal Aunt Asthma Paternal Grandfather Depression Paternal Grandfather Diabetes Paternal Grandfather Emphysema Paternal Grandfather Depression Paternal Grandmother Miscarriages / Stillbirths Paternal Grandmother Relation Status Comments Father Maternal Aunt Maternal Grandfather Maternal Grandmother Mother Paternal Aunt Paternal Grandfather Paternal Grandmother Social History Tobacco Use Types Packs/Day Years Used Date Smoking Tobacco: Never Passive Smoke Exposure: Never Smokeless Tobacco: Never Tobacco Cessation:Counseling Given: [...] Sign Reading Time Taken Comments Blood Pressure 116/79 08/14/2023 1:10 PM FREIGHT SHIPPING AGENT Pulse 96 08/14/2023 1:10 PM FREIGHT SHIPPING AGENT Temperature 37.7 C (99.8 F) 08/14/2023 1:10 PM FREIGHT SHIPPING AGENT Respiratory Rate 17 08/14/2023 1:10 PM FREIGHT SHIPPING AGENT Oxygen Saturation 99% 08/14/2023 1:10 PM FREIGHT SHIPPING AGENT Inhaled Oxygen Concentration - - Weight 93 kg (205 lb) 08/14/2023 1:10 PM FREIGHT SHIPPING AGENT Height 152.4 cm (5') 08/14/2023 1:10 PM FREIGHT SHIPPING AGENT Body Mass Index 40.04 08/14/2023 1:10 PM FREIGHT SHIPPING AGENT Plan of Treatment Health Maintenance Due Date Last Done Comments Cervical Cancer Screening Pa p Smear (Age 30 to 64) Every 3 Years 1988 Hepatitis C 2006 Hepatitis B Vaccines (1 of 3 - 19+ 3-dose series) 2007 Cervical Cancer Screening Pa p with HPV Testing (Age 30 to 64) Every 5 Years 2018 Cervical Cancer Screening wi th HPV 2018 COVID-19 Vaccine (4 - 2023-2 5 season) 2024 09/21/2021, 12/24/2020, 12/03/2020 Influenza Adult (#1) 2024 08/14/2023, 09/21/2021, 08/05/2020 Annual Physical 08/14/2024 08/14/2023 PHQ-2 (Physician [place]) 08/14/2024 08/14/2023 PHQ-2 (Physician [place]) 10/07/2024 08/14/2023 DTaP, Tdap and Td Vaccines ( 3 - Td or Tdap) 04/12/2032 04/12/2022, 01/05/2013 HPV Vaccines Aged Out No longer eligi ble based on patient's age to complete this topic Meningococcal B Vaccine Aged Out No l onger eligible based on patient's age to complete this topic Meningococcal Vaccine Aged Out No yousif michael eligible based on patient's age to complete this topic Pneumococcal Vaccine: Pediatrics (0 to 5 Years) and At-Risk Patients (6 to 64 Years) Aged Out No longer eligible b ased on patient's age to complete this topic RSV Immunizations Under 20 Months Aged Out No longer eligible b ased on patient's age to complete this topic [place] [address] Care Teams Career Development Engineer Relationship Specialty Start Date End Date Jennifer Herzog APNP [address] [place] [address] PCP - General NURSE PRACTITIONER 08/13/23
--- OUTSIDE RECORDS SUMMARY | 2024-11-16 03:12 | XMS_ITS | Clinical Summary ---
Author Organization [facility] Address [address] [place] [address] Care Team Providers Care Quill Machine Operator Name Role Phone Unavailable Primary Care Provider Unavailabl e Allergies Active Allergy Reactions Criticality Noted Date Comments Amoxicillin Rash Low 09/25/2012 Medications fluconazole (DIFLUCAN) 150 mg tablet Take one by mouth now; repeat one by mouth on day 5. 2 Tablet 04/25/2017 Active BLISOVI FE 10/26, , 1 mg-20 mcg (21)/75 mg (7) tablet TAKE 1 TABLET BY MOUTH DAILY. 28 Tablet 05/02/2017 Active Active Problems Problem Noted Date Diagnosed Date Mireya vaginitis 05/28/2016 Contraception management 08/21/2013 C/s 04/24/13 @ 2248 Boy 04/24/2013 Thyroid nodule 09/25/2012 Overview (09/25/2012): Seeing Biomedical Engineer in [place]. Resolved Problems Problem Noted Date Diagnosed Date Resolved Date C/S, FTP, fever, NRFHR 04/24/201308/05 Threatened labor, antepartum 04/23/2013 08/05/2013 state, incidental 03/30/2013 1 state, incidental 03/23/2013 1 state, incidental 03/20/2013 1 Immunizations Immunization Administration Dates Next Due (ADACEL/BOOSTRIX)(10 YR UP) TDAP VACCINE, 0.5ML, IM 01/05/2013 Rho (D) IMMUNE GLOBULIN 1,500 UNIT(300 MCG) INJE CTION 04/25/2013 Family History Medical History Relation Name Comments Healthy Brother Healthy Father Healthy Mother Relation Name Status Comments Brother Alive Father Alive Maternal Grandfather Maternal Grandmother Alive Mother Alive Paternal Grandfather Paternal Grandmother Social History Tobacco Use Types Packs/Day Years Used Date Smoking Tobacco: Never Smokeless Tobacco: Never Alcohol Use Standard Drinks/Week Comments No 0 (1 standard drink = 0.6 oz pur e alcohol) Comments No Sex and Gender Information Value Date Recorded Sex Assigned at Not on file 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 Gender Identity Not on file Sexual Orientation Not on file Occupation Industry Job Start Date Job End Date Not on file Not on file Not on file Not on file Not on file Not on file Not on file Not on file Last Filed Vital Signs Vital Sign Reading Time Taken Comments Blood Pressure 112/68 04/25/2017 2:30 PM CDT Pulse 68 04/25/2017 2:30 PM CDT Temperature 37.3 C (99.1 F) 07/31/2013 1:55 PM CDT Respiratory Rate 18 04/25/2017 2:30 PM CDT Oxygen Saturation 95% 04/25/2013 1:15 AM CDT Inhaled Oxygen Concentration - - Weight 90.7 kg (200 lb) 04/25/2017 2:30 PM CDT Height 154.9 cm (5' 1 ) 04/25/2017 2:30 PM CDT Body Mass Index 37.79 04/25/2017 2:30 PM CDT Plan of Treatment Health Maintenance Due Date Last Done Comments HEPATITIS B VACCINES (1 of 3 - 19+ 3-dose series) 2007 CERVICAL CANCER SCREENING 04/10/20192015, 01/19/2015, 01/19/2015, Additional history exists DTAP/TDAP/TD VACCINES (2 - Td or Tdap) 01/05/2023 01/05/2013 INFLUENZA VACCINE (#1) 2024 HPV VACCINES Aged Out No longer eligi ble based on patient's age to complete this topic PNEUMOCOCCAL VACCINE 0-64 YEARS Aged Out No longer eligible based on patient's age to complete this topic Procedures Procedure Name Priority Date/Time Associated Diagnosis Comments CERV/VAG CYTO SCREEN PAP RLFX HPV Routine 04/10/2016 5:13 PM CDT Encounter for gynecological examination without abnormal finding from Last 3 Months or Most Recently Relevant to Health Maintenance Results * CERV/VAG CYTOPATH, THIN PREP IMAGR RFLX HPV (CP) (04/10/2016 5:13 PM CDT) CLINICAL INFORMATION SCREENING 04/16/2016 1:00 PM CDT [facility] LAST MENSTRUAL PERIOD SEE COMMENT 04/16/2016 1:00 PM CDT [facility] Comment:Information not prov ided PREV PAP: SEE COMMENT 04/16/2016 1:00 PM CDT [facility] Comment:Information not prov ided PREV BX: SEE COMMENT 04/16/2016 1:00 PM CDT [facility] Comment:Information not prov ided SOURCE Endocervix 04/16/2016 1:00 PM CDT [facility] ADEQUACY: SEE COMMENT 04/16/2016 1:00 PM CDT [facility] Comment: Satisfactory for evaluation. Endocervical/transformation zone component absent. Age and/or menstrual status not provided INTERPRETATION SEE COMMENT 04/16/2016 1:00 PM CDT [facility] Comment:Negative for intraep ithelial lesion or malignancy. COMMENT SEE COMMENT 04/16/2016 1:00 PM CDT [facility] Comment: This Pap test has been evaluated with computer assisted technology. FOOD AND BEVERAGE COORDINATOR: SEE COMMENT 04/16/2016 1:00 PM CDT [facility] Comment: MVB, CT(ASCP) CT screening location: [place] [address] Administration [place] [address] Specimen from genital system (specimen) SWAB OF ENDOCERVIX / Unknown Collection / Unknown 04/10/2016 5:13 PM CDT 04/10/2016 5:13 PM CDT Narrative [facility] - 04/16/2016 1:00 PM CDT Performing Organization Information: Site ID: Name: [facility] Address: [facility] Administration [place] [address] Director: Mark Garcia MD us Ramo Jimenes DO PATHOLOGY/CYTOLOGY ORDERABLES F inal Result [facility] [address] [place] [address], from Last 3 Months or Most Recently Relevant to Health Maintenance Insurance [facility]ESS CHOICE Advance Directives For more information, please contact: [phone] * Full Code (Latest Code Status on File) Date Activated Date Inactivated Comments 04/25/2013 2:33 AM 04/28/2013 2:11 PM * Full Code Date Activated Date Inactivated Comments 04/24/2013 12:52 PM 04/25/2013 2:33 AM * Full Code Date Activated Date Inactivated Comments 04/23/2013 10:35 AM 04/23/2013 2:18 PM
--- OUTSIDE RECORDS SUMMARY | 2024-11-16 03:12 | XMS_ITS | Patient Health Summary ---
Author Organization [facility] Address [address] [place] [address] Care Team Providers Care Tubular Splitting Machine Tender Name Role Phone Pcp, Navi Crump Primary Care Provider Unav ailable Note from [facility],non-owned Affiliates and Associated Physician Practices is amultiple site organization consisting of ambulatory clinics and hospital sitesin [place], [place], [place] and [place]. This disclosure is being madepursuant to the Care Everywhere program and may not contain all information available regarding this patient. Last updated 18.[facility] [employer] Allergies * Amoxicillin(Itching) Medications * Be aware that medications may not be up to date on this document. Alwaysverify current medications with the patient. 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 Inhaled Oxygen Concentration - - Weight 86.2 kg (190 lb) 04/27/2018 3:49 PM CDT Height 154.9 cm (5' 1 ) 04/27/2018 3:49 PM CDT Body Mass Index 35.9 04/27/2018 3:49 PM CDT Procedures * PATHOLOGY/CYTOLOGY REPORT ORDER(Performed 06/20/2022) * STREP A SCREEN - POINT OF CARE (AMB) STL(Performed 11/14/2017) Performed for Nasopharyngitis * PATHOLOGY TISSUE EXAM (STL)(Performed 05/24/2016) Performed for Cholecystitis * LAPAROSCOPIC CHOLECYSTECTOMY(Performed 05/24/2016) * HCG URINE QUALITATIVE - POINT OF CARE(Performed 05/24/2016) * US ABDOMEN LIMITED(Performed 05/17/2016) Performed for Epigastric abdominal pain, Colic in adult, Food intolerance in adult, Flatulence Results * PATHOLOGY/CYTOLOGY REPORT ORDER (06/20/2022) 06/20/2022 Narrative 06/20/2022 Ordered by an unspecified provider. Scanned Document LAB - PATHOLOGY/CYTO LOGY ORDERABLES * STREP A SCREEN (11/14/2017) Strep A Rapid POCT Negative Negative Strep A Internal Control Present Lot # [id number] Expiration Date Throat ENTIRE THROAT (SURFACE REGION OF NECK) / Unknown 11/14/2017 Christian Delvalle PRODUCT DEVELOPMENT SPECIALIST-PAINT BRUSH MAKER LAB - POINT OF CARE ORDERABLES * GROSS + MICRO EXAM (STL) (05/24/2016 1:46 PM CDT) Case Report Surgical Pathology Report Case: [id number] Authorizing Provider: Stanislaw Sims DO Collected: 05/24/2016 01:46 PM Ordering Location: [facility] Received: 05/25/2016 07:42 AM Pathologist: Nathanael Phelan MD Specimen: Gallbladder 05/28/2016 2:44 PM CDT [facility] Final Diagnosis 1. Gallbladder, cholecystectomy: -- Chronic cholecystitis -- Cholesterolosis -- Cholelithiasis AB/alan 05/28/2016 2:44 PM CDT [facility] Gross Description Received in formalin in a container labeled Azucena Gomez., gallbladder. The container holds an 11 x 3.8 x 3.5 cm intact gallbladder. The cystic duct is patent and unremarkable. The contents of the gallbladder and the container are strained yielding a single yellow-green gallstone measuring 2 x 1.5 x 1.3 cm. The bile is yellow-green. The mucosa is green and velvety with yellow streaks. The wall of the gallbladder measures 0.2 cm in average thickness. Window Display Designer sections are submitted in cassette labeled A1. DYT/klg 05/28/2016 2:44 PM CDT [facility] Microscopic Description The sections of the gallbladder show cholesterolosis and slight chronic inflammation. No dysplasia is seen. AB/alan 05/28/2016 2:44 PM CDT [facility] Pathology/Cytolo gy ENTIRE GALLBLADDER / Unknown 05/24/2016 1:46 PM CDT 05/25/2016 7:42 AM CDT Stanislaw Sims DO LAB - PATHOLOGY/CYTO LOGY ORDERABLES Performing Organization Address City/[facility]/ZIP Co de Phone Number [facility] [address] [place] [address] * HCG URINE QUALITATIVE - POINT OF CARE (IP) (05/24/2016 12:13 PM CDT) HCG Qual Urine Negative Negative [facility] QC Verified Yes Yes [facility] P[facility] T TESTING Urine specimen (specimen) URINE / Unknown 05/24/2016 12:13 PM CDT Aisha Espinoza DO LAB - POINT OF CARE ORDERABLES Performing Organization Address [facility] Co de Phone Number [facility] [address] [place] [address], [facility] [phone] * US ABDOMEN LIMITED (05/17/2016 7:33 AM CDT) Anatomical Region Laterality Modality Abdomen Ultrasound 05/17/2016 8:14 AM CDT Impressions 05/17/2016 8:52 AM CDT Large gallstone is present without evidence of acute cholecystitis at this time. Edited by Karen Saenz on 05/17/2016 8:31 AM Narrative 05/17/2016 8:52 AM CDT RIGHT UPPER QUADRANT ULTRASOUND INDICATION: Right upper quadrant abdominal pain. TECHNIQUE: Grayscale images of the right upper quadrant were performed. FINDINGS: A mobile, large, shadowing gallstone is present within the gallbladder, but there is no gallbladder wall thickening or pericholecystic fluid. The gallstone measures approximately 1.6 cm in diameter. No sonographic Corral's sign was present. The liver is normal in size and echogenicity. The common bile duct measures 0.14 cm. The visualized portions of the pancreas are unremarkable. The right kidney is of normal size, echogenicity and renal cortical thickness and measures 9.97 x 3.72 x 4.33 cm. Procedure Note Deb Olivo MD - 05/17/2016 RIGHT UPPER QUADRANT ULTRASOUND INDICATION: Right upper quadrant abdominal pain. TECHNIQUE: Grayscale images of the right upper quadrant were performed. FINDINGS: A mobile, large, shadowing gallstone is present within the gallbladder, but there is no gallbladder wall thickening or pericholecystic fluid. The gallstone measures approximately 1.6 cm in diameter. No sonographic Corral's sign was present. The liver is normal in size and echogenicity. The common bile duct measures 0.14 cm. The visualized portions of the pancreas are unremarkable. The right kidney is of normal size, echogenicity and renal cortical thickness and measures 9.97 x 3.72 x 4.33 cm. IMPRESSION Large gallstone is present without evidence of acute cholecystitis at this time. Edited by Karen Saenz on 05/17/2016 8:31 AM Lei Delgado US ORDERABLES Care Teams Tubular Splitting Machine Tender Relationship Specialty Start Date End Date PcpNavi PCP - General 04/11/23
--- OUTSIDE RECORDS SUMMARY | 2024-11-16 03:12 | XMS_ITS | Referral Summary ---
Author Organization [facility] Address [address] [place] [address] Care Team Providers Care Chair Upholsterer Name Role Phone Pcp, Navi Crump Primary Care Provider Unav ailable Source Comments [facility],non-owned Affiliates and Associated Physician Practices is amultiple site organization consisting of ambulatory clinics and hospital sitesin [place], [place], [place] and [place]. This disclosure is being madepursuant to the Care Everywhere program and may not contain all information available regarding this patient. 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 No 05/24/2016 Is person blind or have serious difficulty seein g? No 05/24/2016 Does person have serious dif ficulty walking/climbing stairs? No 05/24/2016 Does person have difficulty dressing/bathing? No 05/24/2016 Does person have difficulty doing errands alone? No 05/24/2016 Cognitive Status Response Date of Assessm ent Does person have difficulty concentrating/remembering/making decisions? No 05/24/2016 Plan of Treatment Not on file Care Teams Chair Upholsterer Relationship Specialty Start Date End Date PcpNavi PCP - General 04/11/23
[2024-11-16 07:06] VITALS: BP 128/66; PULSE 84; RESP 16; TEMP 36.9; O2SAT 100; BMI 37.0
--- NOTE | 2024-11-16 07:31 | WPDHPUPDATE1 ---
History and Physical Update Update Date/Time: 11/16/24 07:31 History and Physical has been reviewed, including an updated exam of the patient. There are NO changes in the patient's condition. Risks, benefits, and alternatives have been discussed and questions answered. Patient agrees to proceed with procedure.
--- NOTE | 2024-11-16 07:31 | PM.HPGS ---
History of Present Illness History of Present Illness Consent: Risks, benefits, and alternatives have been discussed and questions answered. Patient agrees to proceed with procedure. Chief complaint: abnormal uterine bleeding Narrative: Azucena Gomez is a 34 year old female with intermenstrual bleeding. It was recommended to undergo D&C hysteroscopy. Risks of infection bleeding perforation and possible pathology are reviewed. Patient voices understanding and agrees to proceed. Review of Systems Review of Systems: not repeated day of surgery; patient states no changes in status [facility] Past Medical History Medical History (Updated 11/16/24 @ 07:35 by Cyndy Zamora MD) History of thyroid nodule History of kidney stones PCOS (polycystic ovarian syndrome) Surgical History Surgical History (Updated 11/16/24 @ 07:34 by Cyndy Zamora MD) History of laparoscopic cholecystectomy History of bilateral tubal ligation History of X3 Social History Social History Smoking status: Never smoker Alcohol intake: current Alcohol use details: socially, x2 a year Substance use: current Substance use type: marijuana Other substance usage details: monthly Living arrangements: with family Meds Home Medications and Allergies Home Medications ?Medication ?Instructions ?Recorded ?Confirmed ?Type cholecalciferol (vitamin D3) 50 50 mcg PO DAILY 11/04/24 11/04/24 History mcg (2,000 unit) capsule mecobalamin (vitamin B12) 1,000 1,000 mcg PO DAILY 11/04/24 11/04/24 History mcg chewable tablet metformin 500 mg tablet,extended 500 mg PO TID PCOS 11/04/24 11/04/24 History release 24 hr spironolactone 50 mg tablet 25 mg PO DAILY 11/04/24 11/04/24 History uro vaginal probiotic See Rx Instructions .Route .COMPLEX 11/04/24 11/04/24 History Allergies Allergy/AdvReac Type Severity Reaction Status Date / Time amoxicillin Allergy Rash Verified 11/04/24 13:06 Exam Const: General: healthy appearing and alert Orientation/consciousness: patient oriented x3 Resp: Effort & Inspection: normal respiratory effort GI: GI Palp: Yes Soft to palpation, No Tenderness to palpation present (GI) and No Palpable mass present : External Female Exam: normal external appearance Speculum Exam - Vagina: normal appearance of the vagina and normal vaginal discharge Speculum Exam - Cervix: normal appearance of the cervix Bimanual exam- vagina & uterus: uterine size normal and consistency normal Bimanual Exam- Adnexa, other: normal adnexae and No adnexal tenderness Neuro: General: patient oriented x3 Assessment and Plan Assessment and plan (1) Intermenstrual bleeding: Code(s): N92.3 - Ovulation bleeding Status: Acute Assessment and Plan: Proceed with D&C hysteroscopy
--- NOTE | 2024-11-16 07:36 | WPDHPUPDATE1 ---
History and Physical Update Update Date/Time: 11/16/24 07:36 History and Physical has been reviewed, including an updated exam of the patient. There are NO changes in the patient's condition. Risks, benefits, and alternatives have been discussed and questions answered. Patient agrees to proceed with procedure.
[2024-11-16] MEDS: LACTATED RINGERS 1,000 ML 30 ML IV CONT (07:40)
[2024-11-16] MEDS: ACETAMINOPHEN 500 MG TABLET 1000 MG PO (07:45)
[2024-11-16 08:09] LABS: BEDSIDEPREGUCG Negative (Negative)
--- NOTE | 2024-11-16 08:47 | P.PNAN_ITS ---
Anes - Initial Pre Proc Eval Procedure: Operation Date: 11/16/24 09:00 Proposed Procedures p Hysteroscopy, Dilation and Curettage - Cyndy Zamora MD Date/Time: 11/16/24 08:47 Surgeon: Cyndy Zamora MD Pre Op Diagnosis: abnormal uterine bleeding Patient Data Age: 34 Gender: F Height: 1.52 m Weight: 86 kg Last Vital Signs Temp 98.5 F 11/16/24 07:06 Pulse 84 11/16/24 07:06 Resp 16 11/16/24 07:06 BP 128/66 11/16/24 07:06 Pulse Ox 100 11/16/24 07:06 O2 Del Method Room Air 11/16/24 07:06 Allergies Allergy/AdvReac Type Severity Reaction Status Date / Time amoxicillin Allergy Rash Verified 11/16/24 08:03 Home Medications ?Medication ?Instructions ?Recorded ?Confirmed ?Type cholecalciferol (vitamin D3) 50 50 mcg PO DAILY 11/04/24 11/16/24 History mcg (2,000 unit) capsule mecobalamin (vitamin B12) 1,000 1,000 mcg PO DAILY 11/04/24 11/16/24 History mcg chewable tablet metformin 500 mg tablet,extended 500 mg PO TID PCOS 11/04/24 11/16/24 History release 24 hr spironolactone 50 mg tablet 25 mg PO DAILY 11/04/24 11/16/24 History uro vaginal probiotic See Rx Instructions .Route .COMPLEX 11/04/24 11/04/24 History Laboratory Tests 11/16/24 07:20 POC Urine HCG, Qual Negative (Negative) Patient hx anesthesia problems: none Family hx anesthesia problems: none Results Review: All pre-operative results and documents have been reviewed as part of the pre- operative evaluation. [facility] Past Medical History Medical History History of thyroid nodule History of kidney stones PCOS (polycystic ovarian syndrome) Surgical History Surgical History History of laparoscopic cholecystectomy History of bilateral tubal ligation History of X3 Social History Social History Smoking status: Never smoker Alcohol intake: current Alcohol use details: socially, x2 a year Substance use: current Substance use type: marijuana Other substance usage details: monthly Living arrangements: with family Vadim - Francis Final PreProcedure Day of Procedure 11/16/24 08:47 Patient weight: obese Lungs: normal air movement Airway: Mallampati scale class II Neurological: alert and oriented Last oral intake: >/= 8 hours ASA classification: II Emergent: no Anesthetic plan: proceed Anesthesia type and monitoring: general GIVS and standard monitoring Results Review: All pre-operative results and documents have been reviewed as part of the pre- operative evaluation. PCOS, pt walks 4 miles/daily, no cp or sob. Informed Consent: The patient's anesthetic plan and its attendant risks and benefits were discussed with the patient/family/POA. Questions were solicited and answers provided to the satisfaction of the patient/family/POA.
--- NOTE | 2024-11-16 09:22 | W.PM.PROC2 ---
Procedure Note - Detailed Date of Procedure 11/16/24 Pre-op Diagnosis abnormal uterine bleeding Post-op Diagnosis Same Procedure Performed D&C hysteroscopy Surgeon Cyndy Zamora MD Anesthesia MAC Findings Uterus sounds to 9cm and is anteverted. Endometrium has the appearance of being very near her cycle with no discrete lesions. Description of Procedure The patient is taken to the operating room placed under anesthesia in the dorsal lithotomy position. She was prepped draped in usual sterile fashion. A bivalve speculum was placed in the vagina and the cervix was grasped on the anterior lip with a tenaculum. The uterus is sounded to 9cm. The diagnostic hysteroscope was placed with no abnormalities noted it is removed. The sharp curette is used to curette the endometrium until a good uterine cry was noted in all areas. All instruments are removed. Sponge, needle, and instrument counts are correct per the OR staff. The patient is taken to recovery in stable condition. Estimated Blood Loss 5 Drains No Packing No Pathology Yes (Endometrial curettings) Complications No immediate complications Condition Stable Disposition PACU
[2024-11-16 09:25] VITALS: BP 109/60; PULSE 70; RESP 12; O2SAT 96
[2024-11-16 09:55] VITALS: BP 112/63; PULSE 74; RESP 16; O2SAT 100
[2024-11-16 10:25] VITALS: BP 105/54; PULSE 63; RESP 18
== END 2024-11-16 10:33 | disposition home or self-care (01) ==
PROVIDERS: Visit Provider Obstetrics & Gynecology Gynecology
PROC: 0U5B8ZZ Destruction of Endometrium, Via Natural or Artificial Opening Endoscopic (ICD-10-PCS; CPT 58563; principal; 2024-11-16 09:00)
DX: N92.1 Excessive and frequent menstruation with irregular cycle (principal); E28.2 Polycystic ovarian syndrome; F12.90 Cannabis use, unspecified, uncomplicated; E66.9 Obesity, unspecified; Z68.37 Body mass index [BMI] 37.0-37.9, adult; Z79.84 Long term (current) use of oral hypoglycemic drugs; Z98.890 Other specified postprocedural states; Z90.49 Acquired absence of other specified parts of digestive tract; Z98.51 Tubal ligation status; Z87.442 Personal history of urinary calculi
CPT/HCPCS: 58558; 88305; A9270; J1100; J2003; J2250; J2405; J2704; J3010; J7120